=== PATIENT | male | born 1965 | race Two or more races ===

== ENCOUNTER 2024-06-06 23:53 | Emergency (ER) | payer OTHER ==
[~2024-06-06] VITALS: Ht 182.9 cm; Wt 87.0 kg
[2024-06-06 23:55] VITALS: BP 145/94; PULSE 80; RESP 18; TEMP 97.9; O2SAT 99
== END 2024-06-07 03:49 | disposition left against medical advice (07) ==
LOC: ER 23:53
DX: R07.9 Chest pain, unspecified (principal); I10 Essential (primary) hypertension
CPT/HCPCS: 93005; 99283